=== PATIENT | female | born 1975 | race Caucasian/White ===

== ENCOUNTER 2017-01-22 08:05 | Emergency (ER) | payer OTHER ==
[~2017-01-22] VITALS: Ht 170.2 cm; Wt 66.7 kg
--- NOTE | ~2017-01-22 | EKG ---
PATIENT: CUCA HANNON UNIT #: [id number] Ventricular Rate: 115 BPM Atrial Rate: 115 BPM P-R Interval: 144 ms QRS Duration: 72 ms Q-T Interval: 352 ms QTC Calculation(Bezet): 486 ms P [place]: 63 degrees Calculated R [place]: 77 degrees Calculated T [place]: 51 degrees Diagnosis Line: Sinus tachycardia Diagnosis Line: Otherwise normal ECG Diagnosis Line: No previous ECGs available Diagnosis Line: Confirmed by SONY DAVEY MD ([id number]) on 01/23/2017 Diagnosis Line: 5:03:07 PM INTERPRETING MD: TAMICA MOLINA
--- NOTE | ~2017-01-22 | CR72 ---
[facility] A Service of [facility] RADIOLOGY TEXT RESULTS PATIENT: CUCA HANNON LOCATION: [facility] : 79 UNIT #: [id number] AGE: [address]: Bertha Harp MD SEX: F ORDER DR: [id number] [facility] [address] [place], [place] [address] [id number] MR#: [id number] Acc #: [id number] NAME: CUCA HANNON : 1975 SEX: F STUDY DATE/TIME: 01/22/2017 9:22 UNIT: [facility] ROOM: STUDY DESCRIPTION: CR Chest Single View Portable Attending Physician: Ada Cavanaugh M.D. Ordering Physician: Ada Cavanaugh M.D. MEDICAL IMAGING REPORT This report is preliminary unless electronic signature is present EXAM Portable chest HISTORY Dyspnea following a drug overdose with shortness of breath. Onset of symptoms today. TECHNIQUE Single AP view of the chest was obtained. FINDINGS A single AP portable view of the chest shows both lungs to be clear. The heart is normal in size. The mediastinal contour is normal. No significant bone abnormalities are seen. IMPRESSION Normal portable chest. Dictated by... Emre Mckenzie M.D. THIS IS AN ELECTRONICALLY VERIFIED REPORT Emre Mckenzie M.D. at 01/22/2017 4:54 PM RLF/kyung TD: 01/22/2017 10:53 JOB #: [id number] MEDICAL IMAGING REPORT Page 1 of 1 COPY
[2017-01-22 09:32] LABS: BASOPHIL# 0.1 X10e3 (0-0.3); BASOPHIL% 0.8 % (0-2.5); EOSINOPHIL# 0.4 X10e3 (0-0.7); HEMATOCRIT 40.6 % (35.0-45.0); HEMOGLOBIN 13.7 gm/dL (12.0-16.0); LYMPHOCYTE# 1.7 X10e3 (1.0-3.5); LYMPHOCYTE% 13.5 % (17.0-45.0); MEAN CELL VOLUME 95.9 FL (83-96); MEAN CORPUSCULAR HEMOGLOBIN 32.3 PG (28-34); MEAN CORPUSCULAR HGB CONC 33.7 g/dL (30-36); MEAN PLATELET VOLUME 7.6 FL (6.5-11.5); MONOCYTE# 0.8 X10e3 (0-1.0); MONOCYTE% 6.5 % (3.0-12.0); NEUTROPHIL# 9.5 X10e3 (1.5-7.1); NEUTROPHIL% 76.2 % (40-75); PLATELET COUNT 375 X10e3 (140-420); RED BLOOD COUNT 4.23 X10e (3.90-5.30); RED CELL DISTRIBUTION WIDTH 12.7 % (11.0-15.5); WHITE BLOOD COUNT 12.5 X10e3 (4.0-10.5)
[2017-01-22 09:33] LABS: DIFF IND NO
[2017-01-22 09:51] LABS: AMPHETAMINE NEG (NEG); BARBITURATES NEG (NEG); BENZODIAZEPINES NEG (NEG); COCAINE POS (NEG); MARIJUANA POS (NEG); OPIATES POS (NEG); TRICYCLIC ANTIDEPRESSANTS POS (NEG); U METHADONE NEG (NEG)
[2017-01-22 09:56] LABS: ALBUMIN SERUM 4.2 g/dL (3.5-5.0); BILIRUBIN, DIRECT 0.1 mg/dL (0.0-0.2); BILIRUBIN,INDIRECT 0.5 mg/dL (0.0-0.9); BILIRUBIN,TOTAL 0.6 mg/dL (0.2-2.0); CALCIUM SERUM 8.6 mg/dL (8.4-10.2); CREATININE SERUM 1.1 mg/dL (0.6-1.4); GLOM FILT RATE Estimated 63.2 mL/min (>60); POTASSIUM 3.6 mmol/L (3.5-5.1); PROTEIN TOTAL SERUM 7.2 g/dL (6.0-8.3)
[2017-01-22 12:07] LABS: POC - CKMB <1.0 ng/mL (0.0-7.9); POC - TROPONIN <0.05 ng/mL (<=0.05)
[2017-01-22 12:31] LABS: URINE APPEARANCE CLOUDY; URINE BILIRUBIN NEG (NEG); URINE BLOOD NEG (NEG); URINE COLOR YELLOW; URINE GLUCOSE 50 MG/DL (NORM); URINE KETONE NEG (NEG); URINE LEUKOCYTE ESTERASE NEG (NEG); URINE NITRATE NEG (NEG); URINE PROTEIN 1+ (NEG); URINE UROBILINOGEN NORM (NORM)
[2017-01-22 12:37] LABS: URINE SOURCE CATH
[2017-01-22 12:48] LABS: CULTURE INDICATED? NO; URBCS1 AUWI 0-2 /[HPF] (0-2); URINE AMORPHOUS SEDIMENT AMORP URATES; URINE BACTERIA AUWI NEG (NEGATIVE); URINE SQUAMOUS EPITHELIAL CELL FEW /[HPF]
== END 2017-01-22 22:15 ==
LOC: CED 08:05
PROVIDERS: Emergency Medicine
DX: T40.5X1A Poisoning by cocaine, accidental (unintentional), initial encounter (principal); T40.1X1A Poisoning by heroin, accidental (unintentional), initial encounter; R00.0 Tachycardia, unspecified; Z98.51 Tubal ligation status; F17.200 Nicotine dependence, unspecified, uncomplicated; Z88.2 Allergy status to sulfonamides; Z23 Encounter for immunization
CPT/HCPCS: 36415; 71010; 80048; 80076; 80307; 81003; 82550; 82553; 83605; 83880; 84484; 84703; 85025; 87040; 90471; 90715; 93005; 96361; 96372; 96374; 99285; G0480; J0696; J2310

== ENCOUNTER 2017-01-22 15:07 | Inpatient (IN) | payer OTHER ==
[~2017-01-22] VITALS: Ht 162.6 cm; Wt 68.0 kg
--- NOTE | ~2017-01-22 | PN ---
Unit #: [id number] #: [id number] Patient: ANCA HANNON [id number] [facility] [address] [place] [address] [id number] MR#: [id number] NAME: ANCA HANNON ROOM: [facility] Age: 41 Sex: F Admission Date: 01/22/2017 : 1975 Attending Physician: Vaibhav Sosa M.D. Admitting Physician: Vaibhav Sosa M.D. Primary Care Physician: Primary Care Physician Morena GARCIA PROGRESS NOTES DATE OF SERVICE 01/25/2017 DISCUSSION Anca is showing some improvement today. Her detox symptoms have decreased and her mood is better with a brighter range of affect. She is alert and fully oriented with no active psychosis today. She denies suicidal ideation. ASSESSMENT Alcohol dependence. PLAN Continue current treatment plan. Dictated by... Aayush Loyola/sonya TD: 01/30/2017 01:13 JOB #: [id number] [facility] PROGRESS NOTES Page 1 of 1 X Vaibhav Sosa MD PROGRESS NOTE
--- NOTE | ~2017-01-22 | DS ---
Unit #: [id number] #: [id number] Patient: ANCA HANNON [id number] [place] [address] [id number] MR#: [id number] NAME: ANCA HANNON ROOM: [facility] Age: 41 Sex: F Admission Date: 01/22/2017 : 1975 Discharge Date: 01/26/2017 Attending Physician: Vaibhav Sosa M.D. Primary Care Physician: Primary Care Physician No DISCHARGE SUMMARY REASON FOR ADMISSION Anca is a 41-year-old woman, who presented to the hospital in an intoxicated state. She reported suicidal ideation and some reports of posttraumatic stress disorder. She was unable to contract for safety and was admitted for stabilization. DIAGNOSTIC STUDIES Laboratory data, please see laboratory studies obtained at [facility] which were not repeated at this facility. HOSPITAL COURSE The patient was admitted and placed on suicide precautions in the opiate detox protocol. Her home medications of Prozac and Topamax were restarted. She enrolled in dual diagnosis groups and activities and participated appropriately with resolution of her detox symptoms, and no further suicidal ideation, intent, or plan. She was able to contract for safety at the time of discharge. DISCHARGE DIAGNOSES [place] I Posttraumatic stress disorder, F43.12. Opiate dependence. Alcohol abuse. [place] II No diagnosis. [place] III History of genital herpes. [place] IV [place] V INSTRUCTIONS TO PATIENT Follow up with CD/IOP and primary care physician. DISCHARGE MEDICATIONS No prescriptions were provided. The patient was to continue on Prozac 60 mg daily for depression, Topamax 50 mg twice daily for mood stability, Vistaril 25 mg twice daily and 50 mg at bedtime for anxiety, and Valtrex 1000 mg twice daily for herpes, Wellbutrin and lamotrigine were discontinued. CONDITION AT DISCHARGE Fair. PROGNOSIS Fair. Unit #: [id number] #: [id number] Patient: ANCA HANNON DIET AND ACTIVITY Per primary care doctor. Dictated by... Vaihbav Sosa M.D. JADON/anne TD: 01/30/2017 07:39 JOB #: [id number] DISCHARGE SUMMARY Page 1 of 1 X Vaibhav Sosa MD DISCHARGE SUMMARY
--- NOTE | ~2017-01-22 | PA ---
Unit #: [id number] #: [id number] Patient: ANCA HANNON [id number] [facility] [address] [place] [address] [id number] MR#: [id number] NAME: ANCA HANNON ROOM: [facility] Age: 41 Sex: F Admission Date: 01/22/2017 : 1975 Date of Assessment: 01/23/2017 Attending Physician: Vaibhav Sosa M.D. Admitting Physician: Vaibhav Sosa M.D. Primary Care Physician: Primary Care Physician No PSYCHIATRIC ASSESSMENT DATE OF SERVICE 01/23/2017. INFORMANTS The patient reliable; [facility] records, reliable; [facility] records, reliable. CHIEF COMPLAINT Suicidal ideation and heroin use. HISTORY OF PRESENT ILLNESS Anca is a 41-year-old woman, who presented to [facility], drinking and doing heroin. She said that she was "shooting up daily" and had suicidal ideation with a plan to overdose on heroin. She was medically cleared at [facility], and [facility] PAST PSYCHIATRIC HISTORY No inpatient treatment per patient. She is not currently taking psychiatric medications. FAMILY PSYCHIATRIC HISTORY No reported family history of chemical dependence or mental illness. SOCIAL HISTORY The patient is a woman whose family is partially supportive. She has older children, who have left the home and is living with her . She is unemployed at this time. PAST MEDICAL HISTORY No chronic medical problems. MEDICATIONS None currently. ALLERGIES Sulfa drugs. SUBSTANCE ABUSE HISTORY As noted, the patient has been drinking and using heroin on a frequent basis. Unit #: [id number] #: [id number] Patient: ANCA HANNON MENTAL STATUS EXAMINATION Anca presented as a mildly disheveled woman, who appeared her stated age. She was sleepy, but cooperative with the examination. Her speech was spontaneous and easily understood. Her musculoskeletal examination was calm. Her mood was irritable with a congruent affect. She was alert and fully oriented. Her memory and concentration were fair to good. Her thought processes were goal directed with no active psychosis. She reported some suicidal ideation, but contracted for safety outside the hospital. Insight and judgment were fair. Fund of knowledge and abstraction were fair. ASSETS AND LIABILITIES Assets; the patient knows local resources and presents voluntarily for treatment. Liabilities; include ongoing drug use and active suicidal ideation. ADMITTING DIAGNOSES AXIS I: Posttraumatic stress disorder, chronic, F43.12; opioid dependence. AXIS II: No diagnosis. AXIS III: Opioid withdrawal syndrome, history of genital herpes. AXIS IV: AXIS V: PSYCHIATRIC PLAN The patient was admitted and placed on suicide precautions. She reports that she has been taking some home medications and so we will contact her pharmacy to confirm these and restart them. She will be placed on the opioid detox protocol. Dual diagnosis, psychotherapy will be employed. TREATMENT GOALS Resolution of SI, stabilization of mood, initiation of sobriety. INSTRUCTION The patient to follow up with community mental health and primary care physician. ESTIMATED LENGTH OF STAY 5 days. Dictated by... Vaibhav Sosa M.D. JADON/emy TD: 01/30/2017 15:25 JOB #: [id number] Unit #: [id number] #: [id number] Patient: ANCA HANNON PSYCHIATRIC ASSESSMENT Page 1 of 1 X Vaibhav Sosa MD X PSYCHIATRIC ASSESSMENT
--- NOTE | ~2017-01-22 | HP ---
Unit #: [id number] #: [id number] Patient: ANCA HANNON [id number] [place] [address] [id number] MR#: [id number] NAME: ANCA HANNON ROOM: [facility] Age: 41 Sex: F Admission Date: 01/22/2017 : 1975 Attending Physician: Vaibhav Sosa M.D. Admitting Physician: Vaibhav Sosa M.D. Primary Care Physician: Primary Care Physician No HISTORY AND PHYSICAL HISTORY OF PRESENT ILLNESS Anca is a 41 year old admitted to [facility] because of her drug use. She shoots heroin. PAST MEDICAL HISTORY 1. Long history of opioid abuse to include IV heroin. 2. History of genital herpes. 3. History of migraine headaches. PAST SURGICAL HISTORY Tubal ligation. ALLERGIES Sulfa. SOCIAL HISTORY Smokes 1 pack per day. Denies alcohol. Admits to a long history of opioid abuse to include IV heroin. FAMILY HISTORY Medically noncontributory. REVIEW OF SYSTEMS CONSTITUTIONAL: No fever or chills. HEENT: Denies any sore throat, ear pain or runny nose. CARDIOVASCULAR: Denies chest pain, irregular heart rhythm or palpitations. CHEST: Denies shortness of breath or cough. No hemoptysis. GASTROINTESTINAL: Denies nausea, vomiting, diarrhea or chronic constipation. ENDOCRINE: Denies history of increased thirst or urination. No recent significant weight loss or gain. GENITOURINARY: Denies dysuria, frequency, or hematuria. SKIN: Denies any rashes. HEMATOLOGIC: Denies history of increased bleeding or bruising. MUSCULOSKELETAL: Denies any hot, swollen joints. No generalized muscle pain. NEUROLOGIC: Denies problems with vision or speech. No frequent, severe headaches. No numbness, tingling or weakness in any extremities. Denies loss of bladder or bowel control. CURRENT MEDICATIONS Detox protocol. Unit #: [id number] #: [id number] Patient: ANCA HANNON PHYSICAL EXAMINATION GENERAL: Alert, well-nourished, in no apparent distress. VITAL SIGNS: Blood pressure 100/60, heart rate 80, respirations 16, temperature 98.6. WEIGHT: 150. HEIGHT: 5 feet 4 inches. SKIN: Warm and dry without rash or lesion. HEENT: Normocephalic. TMs not viewed. Oral and nasal passages clear. Conjunctivae clear. PERRLA. EOMs intact. NECK: Supple without lymphadenopathy or thyromegaly. HEART: Regular rate and rhythm without murmur. LUNGS: Clear. ABDOMEN: Soft, nontender. : Not done. EXTREMITIES: No evidence of cyanosis, clubbing or edema. Moves all without focal deficit. NEUROLOGICAL: Grossly within normal limits. Cranial Nerves: II: Visual ca are intact. III, IV AND : Extraocular movements are intact. Pupils are equal, round and reactive to light. V: Facial sensation is grossly normal. VII: Facial movements and expression are normal. VIII: Auditory acuity grossly intact. IX, X: Uvula is midline. Phonation is normal. XI: Patient shrugs shoulders and turns head normally. XII: Tongue protrudes in the midline. Sensory and Motor Function: Sensory and motor sensation is grossly normal. Motor: moves all extremities well. Coordination: Gait is normal. Deep Tendon Reflexes: Intact. IMPRESSION Psychiatric admission. RECOMMENDATIONS PSYCHIATRIC: Per psychiatrist. MEDICAL: See no contraindication to participate in facility's activities. MEDICAL PROGNOSIS Good. MEDICAL CONDITION Stable. Dictated by... Vani Sim P.A.-C. for Aayush Iverson/antonino TD: 01/23/2017 18:33 JOB #: [id number] Unit #: [id number] #: [id number] Patient: ANCA HANNON HISTORY AND PHYSICAL Page 1 of 1 X Vani Sim HISTORY AND PHYSICAL
== END 2017-01-26 14:45 | DRG 897 ==
LOC: P1E 22:33
PROC: HZ2ZZZZ Detoxification Services for Substance Abuse Treatment (ICD-10-PCS; principal; 2017-01-25)
DX: F11.10 Opioid abuse, uncomplicated (principal); F10.20 Alcohol dependence, uncomplicated; Z98.51 Tubal ligation status; Z88.2 Allergy status to sulfonamides; T40.5X1A Poisoning by cocaine, accidental (unintentional), initial encounter; T40.1X1A Poisoning by heroin, accidental (unintentional), initial encounter; R00.0 Tachycardia, unspecified; F17.200 Nicotine dependence, unspecified, uncomplicated; Z23 Encounter for immunization
CPT/HCPCS: 36415; 71010; 80048; 80076; 80307; 81003; 82550; 82553; 83605; 83880; 84484; 84703; 85025; 87040; 90471; 90715; 93005; 96361; 96372; 96374; 99285; G0480; J0696; J2310